=== PATIENT | female | born 1970 | race Caucasian/White ===

== ENCOUNTER → 2019-03-17 | Outpatient (CLI) | payer BC ==
[~2019-03-17] VITALS: Ht 170 cm; Wt 110.0 kg
[~2019-03-17] MED LIST: CATHETER FLUSH 10 ML SYR IV PRN; REGADENOSON 0.4 MG/5 ML SYR (LEXISCAN) IV ONE
[2019-03-17 09:27] VITALS: BP 157/114
[2019-03-17 09:34] VITALS: BP 139/90
== END ==
LOC: CARD 07:54
PROVIDERS: ATTEND Internal Medicine Cardiovascular Disease
DX: R07.9 Chest pain, unspecified (principal); E11.69 Type 2 diabetes mellitus with other specified complication; I10 Essential (primary) hypertension; E78.5 Hyperlipidemia, unspecified

== ENCOUNTER → 2019-03-18 | Outpatient (CLI) | payer BC | LOC: CARD 08:56 → EDUNIT# 09:00 | PROVIDERS: ATTEND Internal Medicine Cardiovascular Disease | DX: R07.9 Chest pain, unspecified (principal); E11.69 Type 2 diabetes mellitus with other specified complication; I10 Essential (primary) hypertension; E78.5 Hyperlipidemia, unspecified | CPT/HCPCS: 93306 ==

== ENCOUNTER 2020-01-11 01:08 | Emergency (ER) | payer SELFPAY ==
--- NOTE | 2020-01-11 01:37 | ED Abdominal Pain ---
General Chief Complaint: Abdominal/GI Problems Stated Complaint: CONSTIPATION Nursing Triage Note: Pt arrived by ems with complaint of constipation. Pt states she isn't sure when her last bm was but knows it has been a few days Sepsis Screen: No Definite Risk Source of Information: Patient Exam Limitations: No Limitations History of Present Illness Date Seen by Provider: Jan 11, 2020 Time Seen by Provider: 01:33 49-year-old female with a past medical history significant for diabetes, anxiety, depression presented to the emergency department with a complaint of c onstipation. Patient has not had a bowel movement for 5 days. She is no longer passing gas. She denies any nausea, vomiting, fever, chills. She reports having rectal fullness. She attempted to disimpact her stool at home with no success. However, she did note a significant amount of stool near her rectum. She has not taken any rbzo-[id number] laxatives or attempted an enema at this time. No significant history of constipation. She reports that she has been out of all of her medications due to cost and has been quarantining for the last 8 months due to Covid as she has significant fears of kp the virus. She is normally from [place], but has been living with family locally. Prior abdominal surgery includes 3 sections. Allergies and Home Medications Allergies Coded Allergies: No Allergy Information Available (Unverified , 03/17/19) Patient Home Medication List Home Medication List Reviewed: Yes Review of Systems Review of Systems Constitutional: no symptoms reported; No fever, No weakness Respiratory: Denies Shortness of Air Cardiovascular: Denies Chest Pain Gastrointestinal: Constipated; Denies Diarrhea, Denies Nausea, Denies Rectal Bleeding, Denies Vomiting Past Brifnjn-Xwyupb-Yuzqvg Hx Patient Social History Alcohol Use: Denies Use Recreational Drug Use: No Smoking Status: Current Everyday Smoker 2nd Hand Smoke Exposure: No Recent Foreign Travel: No Contact w/Someone Who Travel: No Recent Infectious Disease Expo: No Recent Hopitalizations: No Physical Abuse: No Sexual Abuse: No Past Medical History Surgeries: Yes Section, Gallbladder, Orthopedic, Thyroidectomy Respiratory: No Cardiac: No Neurological: No Sexually Transmitted Disease: Yes Genitourinary: Yes Renal Failure Gastrointestinal: No Musculoskeletal: No Endocrine: Yes Diabetes, Insulin dep, Lupus HEENT: No Cancer: Yes Psychosocial: Yes Anxiety Integumentary: No Blood Disorders: No Physical Exam Vital Signs Vital Signs - First Documented 12/6/20 01:08 Temp 36.7 Pulse 94 Resp 18 B/P (MAP) 147/81 (103) Pulse Ox 97 O2 Delivery Room Air Capillary Refill : Less Than 3 Seconds Height/Weight/BMI Height: '" Weight: lbs. oz. kg; BMI Method: General Appearance: WD/WN, no apparent distress HEENT: PERRL/EOMI Neck: supple Respiratory: no respiratory distress, no accessory muscle use Cardiovascular: regular rate, rhythm, no edema Gastrointestinal: normal bowel sounds, non tender, soft, no organomegaly; No distended, No guarding, No rebound; other (Rectal exam performed with nurse present. No external hemorrhoids are appreciated, no rectal prolapse, no rectal tears.) Extremities: normal inspection Back: normal inspection Neurologic/Psychiatric: alert, normal mood/affect, oriented x 3 Skin: normal color, warm/dry Progress/Results/Core Measures Results/Orders Lab Results Laboratory Tests Test 01/11/20 01:40 01/11/20 03:13 Range/Units White Blood Count 9.9 4.3-11.0 10^3/uL Red Blood Count 4.16 L 4.35-5.85 10^6/uL Hemoglobin 11.4 L 11.5-16.0 G/DL Hematocrit 33 L 35-52 % Mean Corpuscular Volume 79 L 80-99 FL Mean Corpuscular Hemoglobin 27 25-34 PG Mean Corpuscular Hemoglobin Concent 35 32-36 G/DL Red Cell Distribution Width 13.2 10.0-14.5 % Platelet Count 407 H 130-400 10^3/uL Mean Platelet Volume 11.0 H 7.4-10.4 FL Immature Granulocyte % (Auto) 0 % Neutrophils (%) (Auto) 58 42-75 % Lymphocytes (%) (Auto) 29 12-44 % Monocytes (%) (Auto) 8 0-12 % Eosinophils (%) (Auto) 4 0-10 % Basophils (%) (Auto) 1 0-10 % Neutrophils # (Auto) 5.8 1.8-7.8 X 10^3 Lymphocytes # (Auto) 2.9 1.0-4.0 X 10^3 Monocytes # (Auto) 0.8 0.0-1.0 X 10^3 Eosinophils # (Auto) 0.4 H 0.0-0.3 10^3/uL Basophils # (Auto) 0.1 0.0-0.1 10^3/uL Immature Granulocyte # (Auto) 0.0 0.0-0.1 10^3/uL Sodium Level 126 L 135-145 MMOL/L Potassium Level 3.8 3.6-5.0 MMOL/L Chloride Level 90 L 98-107 MMOL/L Carbon Dioxide Level 25 21-32 MMOL/L Anion Gap 11 5-14 MMOL/L Blood Urea Nitrogen 11 7-18 MG/DL Creatinine 1.37 H 0.60-1.30 MG/DL Estimat Glomerular Filtration Rate 41 BUN/Creatinine Ratio 8 Glucose Level 653 *H 70-105 MG/DL Calcium Level 7.9 L 8.5-10.1 MG/DL Corrected Calcium 8.7 8.5-10.1 MG/DL Total Bilirubin < 0.2 0.1-1.0 MG/DL Aspartate Amino Transf (AST/SGOT) 16 5-34 U/L Alanine Aminotransferase (ALT/SGPT) 18 0-55 U/L Alkaline Phosphatase 123 40-136 U/L Total Protein 5.5 L 6.4-8.2 GM/DL Albumin 3.0 L 3.2-4.5 GM/DL Lipase 23 8-78 U/L Serum Test, Qualitative NEGATIVE NEGATIVE Glucometer 559 *H 70-110 MG/DL My Orders Orders - HALEY GUTIERREZ MD Comprehensive Metabolic Panel (01/11/20 01:32) Lipase (01/11/20 01:32) Ua Culture If Indicated (01/11/20 01:32) Hcg,Qualitative Serum (01/11/20 01:32) Cbc With Automated Diff (01/11/20 01:32) Na Phos/Na Biphos Enema (Fleet Enema Parth (01/11/20 01:45) Ed Iv/Invasive Line Start (01/11/20 02:07) Ns Iv 1000 Ml (Sodium Chloride 0.9%) (01/11/20 02:30) Insulin (Regular) Human (Novolin R (Per (01/11/20 02:30) Accucheck Stat ONCE (01/11/20 03:07) Medications Given in ED Current Medications Medications Dose Ordered Sig/Lubna Route Start Time Stop Time Status Last Admin Dose Admin Insulin Human Regular 10 unit ONCE ONCE IV 01/11/20 02:30 01/11/20 02:31 DC 01/11/20 02:28 10 UNIT Sodium Biphosphate/ Sodium Phosphate 1 ea ONCE ONCE MI 01/11/20 01:45 01/11/20 01:46 DC 01/11/20 02:23 1 EA Vital Signs/I&O 01/11/20 01:08 Temp 36.7 Pulse 94 Resp 18 B/P (MAP) 147/81 (103) Pulse Ox 97 O2 Delivery Room Air Blood Pressure Mean: 103 Progress Progress Note : Progress Note Patient presentation is consistent with constipation. Differential includes bowel obstruction. She had reassuring vital signs. Her abdominal examination was largely benign with no tenderness, guarding, rebound. Basic laboratory work was obtained along with attempting a fleets enema. Patient was reassessed at : She reported complete resolution of her rectal discomfort after having a very large bowel movement after her enema. Her blood sugars were elevated at 653, normal anion gap, normal bicarb. Likely poorly controlled type 2 diabetes given that she has been out of her insulin. She currently does not have a primary care provider. She will establish care with the [facility] on Sunday. She was given 10 units of regular insulin in the emergency department along with 1 L of normal saline. Remainder patient's laboratory work is reassuring with normal white blood cell count. Patient's blood sugars improved to 559. I discussed repeating another 10 units of insulin with her versus her discharging. Patient was ready to discharge home and did not want to wait to have the repeat insulin and a repeat blood sugar check.Pseudohyponatremia from the patient's elevated blood sugars. Patient remained hemodynamically stable while in the emergency department. I reviewed the plan of care regarding starting a bowel regimen for her at home with MiraLAX along with following up with the [facility] on Sunday to reestablish care and get back on her medications including her insulin. Patient was in agreement with the plan of care. Departure Impression Primary Impression: Constipation Qualified Codes: K59.00 - Constipation, unspecified Additional Impression: High blood sugar Disposition: HOME, SELF-CARE Condition: Improved Departure-Patient Inst. Decision time for Depature: 03:22 Referrals: NO,LOCAL PHYSICIAN (PCP) Primary Care Physician JANETTE INGRAM APRN (Family) [place] Care Physician [facility] [place] Instructions: Constipation in Adults, How to Prevent High Blood Sugar Emergencies in Diabetes Add. Discharge Instructions: You were seen in the emergency department for constipation. Please try bego-kpo-cfneaoc laxatives such as daily MiraLAX until you are having regular bowel movements. Your lab work was reassuring other than your high blood sugars which need follow-up with the [facility] on Sunday as you need to get restarted on your insulin. Please contact the clinic at the number provided on Sunday to schedule an appointment with a provider. Return to the emergency department with new or concerning, or worsening symptoms. All discharge instructions reviewed with patient and/or family. Voiced understanding. HALEY GUTIERREZ MD Jan 11, 2020 01:37
[2020-01-11] MEDS ORDERED: FLEET ENEMA ADULT 1 EA BTL PR ONE (01:45)
[2020-01-11 01:55] LABS: BASOPHILS % (AUTO) 1 % (0-10); EOSINOPHILS % (AUTO) 4 % (0-10); HEMATOCRIT 33 % (35-52); HEMOGLOBIN 11.4 G/DL (11.5-16.0); LYMPHOCYTES # (AUTO) 2.9 X 10^3 (1.0-4.0); LYMPHOCYTES % (AUTO) 29 % (12-44); MEAN CORPUSCULAR HEMOGLOBIN 27 PG (25-34); MEAN CORPUSCULAR HGB CONC 35 G/DL (32-36); MEAN CORPUSCULAR VOLUME 79 FL (80-99); MONOCYTES % (AUTO) 8 % (0-12); NEUTROPHILS # (AUTO) 5.8 X 10^3 (1.8-7.8); NEUTROPHILS % (AUTO) 58 % (42-75); PLATELET COUNT 407 10^3/uL (130-400); WHITE BLOOD COUNT 9.9 10^3/uL (4.3-11.0)
[2020-01-11 01:56] LABS: BASOPHILS # (AUTO) 0.1 10^3/uL (0.0-0.1); EOSINOPHILS # (AUTO) 0.4 10^3/uL (0.0-0.3); MONOCYTES # (AUTO) 0.8 X 10^3 (0.0-1.0)
[2020-01-11 02:16] LABS: BUN/CREATININE RATIO 8; CARBON DIOXIDE 25 MMOL/L (21-32); CHLORIDE 90 MMOL/L (98-107); CREATININE SERUM 1.37 MG/DL (0.60-1.30); GFR ESTIMATED 41; POTASSIUM 3.8 MMOL/L (3.6-5.0); SODIUM 126 MMOL/L (135-145)
[2020-01-11 02:17] LABS: ALANINE AMINOTRANSFERASE 18 U/L (0-55); ALKALINE PHOSPHATASE 123 U/L (40-136); BILIRUBIN,TOTAL < 0.2 MG/DL (0.1-1.0); CALCIUM 7.9 MG/DL (8.5-10.1); GLUCOSE 653 MG/DL (70-105); TOTAL PROTEIN 5.5 GM/DL (6.4-8.2)
[2020-01-11 02:18] LABS: LIPASE 23 U/L (8-78)
[2020-01-11] MEDS ORDERED: NS IV 1000 ML 1,000 ML IV SCH (02:30)
[2020-01-11] MEDS ORDERED: inSUlin (REGULAR) HUMAN 1 UNIT/0.01 ML (CHARGE PER UNIT) IV ONE ×2 (02:30→03:30)
[2020-01-11 03:28] VITALS: BP 109/76
== END 2020-01-11 03:29 | disposition home or self-care (01) ==
LOC: EDUNIT# 01:08 → ER FS 01:10
DX: K59.00 Constipation, unspecified (principal); E11.65 Type 2 diabetes mellitus with hyperglycemia; F17.200 Nicotine dependence, unspecified, uncomplicated
CPT/HCPCS: 80053; 82962; 83690; 84703